=== PATIENT | male | born 1930 | race Caucasian/White ===

== ENCOUNTER → 2017-01-30 | Outpatient (CLI) | payer MEDICARE ==
[2014-09-24 04:50] VITALS: BP 148/69
[~2017-01-30] MED LIST: AMLO10TA2 PO; ASPI325T4 PO; CRESTOR10 MG PO; DOXY100C2 PO; FLUT16SP2 NS; IOHEXOL 240 MG/ML 50ML VIAL. ONE; LISI40TA PO; OSEL30CA PO
--- NOTE | 2017-01-30 10:02 | RAD ---
CT chest abdomen pelvis without IV contrast History: Unexplained 30 pound weight loss. Comparison: None. Technique: After administration of oral contrast only, helical CT of the chest, abdomen, and pelvis was performed from the lung apices through the ischial tuberosities. One or more of the following individualized dose reduction techniques were utilized for the study: Automated exposure control Adjustment of mA and/or kV according to patient's size Use of iterative reconstruction technique. Findings: Evaluation of solid organs is limited by lack of intravenous contrast. Thyroid is symmetric. Trachea and mainstem bronchi appear patent. No mediastinal lymphadenopathy is identified. Aortic atherosclerosis is seen. Coronary artery calcifications are present. Heart and pericardium are unremarkable. Mild centrilobular emphysematous changes are seen within the lungs, primarily in the upper lobes. Multiple small scattered bilateral nonspecific soft tissue pulmonary nodules are seen. A few examples include right lower lobe pulmonary nodule measuring 6 mm (axial image 63). Peripheral left upper lobe demonstrates 4 mm soft tissue pulmonary nodule (axial image 16). 5 mm pulmonary nodule is seen in the right upper lobe (axial image 42). Additional right upper lobe pulmonary nodule measuring 5 mm (axial image 43) is seen. Several additional small pulmonary nodules are scattered throughout both lungs. Liver, spleen, pancreas, and bilateral adrenal glands are unremarkable. Gallbladder is is unremarkable. No bowel obstruction or inflammation is seen. Colonic diverticulosis is noted, but no diverticulitis is appreciated. Urinary bladder is unremarkable. 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 Right renal artery demonstrates presence of stent. There is a 2 mm calcification involving the left kidney, which could be atherosclerosis involving the distal artery versus nonobstructive nephrolith. Both kidneys demonstrate several exophytic small lesion which are intermediate to high in attenuation. The inferior pole of the left kidney demonstrates 1.2 cm intermediate density lesion. The interpolar region of left kidney demonstrates 1.2 cm intermediate density lesion. Superior pole of right kidney demonstrates 0.9 cm intermediate density lesion. Interpolar region of the right kidney demonstrates 2 high density lesions measuring up to 0.9 cm. No abdominal or pelvic lymphadenopathy is seen. Degenerative changes are present in spine. No suspicious osseous lesions are seen. Impression: 1. Limited examination by lack of intravenous contrast. 2. Mild emphysematous changes. 3. Multiple scattered, nonspecific soft tissue pulmonary nodules measure up to 6 mm. Recommend a follow-up CT without contrast in 3-6 months.
== END | disposition home or self-care (01) ==
LOC: CT 07:49
PROVIDERS: ATTEND Family Medicine
DX: J43.2 Centrilobular emphysema (principal); R91.8 Other nonspecific abnormal finding of lung field; R91.1 Solitary pulmonary nodule; R63.4 Abnormal weight loss
CPT/HCPCS: 71250; 74176; Q9966

== ENCOUNTER → 2017-04-30 | Outpatient (CLI) | payer MEDICARE ==
[2014-09-24 04:50] VITALS: BP 148/69
[~2017-04-30] MED LIST changes: -ASPI325T4 PO; +ASPI325T8 PO; -IOHEXOL 240 MG/ML 50ML VIAL. ONE
--- NOTE | 2017-04-30 11:15 | RAD ---
CT chest without contrast 04/30/2017 Clinical indication: Lung nodule follow-up. Comparison: CT chest 01/30/2017 Technique: CT helical acquisition of the chest was obtained without contrast. Coronal and sagittal reformations were obtained. PQRS Compliance Statement: One or more of the following individualized dose reduction techniques were utilized for this examination: 1. Automated exposure control 2. Adjustment of the mA and/or kV according to patient size 3. Use of iterative reconstruction technique Findings: Chest: This is normal without significant pericardial effusion. There is stable mild dilatation of the ascending thoracic aorta measuring 4.0 cm with moderate calcified atheromatous disease. There are three-vessel coronary artery calcifications. No axillary, mediastinal or obvious hilar lymphadenopathy, though evaluation is limited in the absence of intravenous contrast. There are small mediastinal and left hilar calcified granulomas. The central airways are patent. There is mild bilateral central bronchiectasis. Mild upper lobe predominant centrilobular emphysema. There are numerous bilateral noncalcified pulmonary nodules stable in comparison to January 30, 2017 examination. [employer] right lung nodule in the posterior right lower lobe measures 7 mm C series 2/image 66), previously 7 mm. [employer] left lung nodule in the left upper lobe measures 6 mm (series 2/41 image), previously 6 mm. No new or enlarging noncalcified pulmonary nodule. No pleural effusion or pneumothorax. There is multilevel thoracic spondylosis without destructive osseous lesions. Limited images of the upper abdomen: 3 mm calculus in the superior pole the left kidney. Small left renal cyst. Impression: 1. No significant change in numerous noncalcified bilateral pulmonary nodules. Follow-up noncontrast CT chest in 6 months is recommended to assess for stability. 2. Mild emphysema.
== END | disposition home or self-care (01) ==
LOC: CT 10:06
PROVIDERS: ATTEND Family Medicine
DX: J43.2 Centrilobular emphysema (principal); M47.894 Other spondylosis, thoracic region; N28.1 Cyst of kidney, acquired; J98.4 Other disorders of lung; R91.1 Solitary pulmonary nodule
CPT/HCPCS: 71250

== ENCOUNTER → 2017-07-09 | Outpatient (CLI) | payer MEDICARE ==
[2014-09-24 04:50] VITALS: BP 148/69
[~2017-07-09] MED LIST changes: +IOHEXOL 300 MG/ML 75 ML VIAL. IV ONE
[2017-07-09 10:14] LABS: CREATININE 1.5 mg/dL (0.7-1.3); GFR 44.5
--- NOTE | 2017-07-09 14:04 | RAD ---
CTA of the abdomen and pelvis with and without contrast, 07/09/2017: History: Follow-up aortic aneurysm repair Multidetector CT imaging was performed prior to and following an IV bolus injection of iodinated contrast material. Multiplanar reconstructions were produced. 3-D MIP reconstructions of the major arteries were also produced. There is moderate calcific plaquing of the abdominal aorta and its branches. The celiac and superior mesenteric arterial origins are widely patent. There is a single left renal artery. Its origin is slightly dilated. Just distal to this point there is approximate 60% diameter narrowing of the proximal left renal artery. There is also approximately 60-70% diameter narrowing at the origin of the right main renal artery. Just distal to this stenosis there is a patent right renal artery stent. There appears to be only mild in-stent stenosis. There is a second smaller patent right renal artery supplying the lower pole of the right kidney. A patent inferior mesenteric artery is not identified. There is a surgical Y graft extending from the distal abdominal aorta inferiorly attaching into the external iliac arteries bilaterally. The graft is widely patent. The grand traverse distal abdominal aorta and common iliac arteries have been resected. There is no evidence of recurrent abdominal aortic aneurysm. There is moderate atherosclerotic plaquing involving the grand traverse external iliac, internal iliac and common femoral arteries bilaterally. No high-grade external iliac or common femoral arterial stenosis is evident. There is mild arterial dilatation at the bifurcations of the right external and iliac arteries bilaterally, measuring approximately 15 mm in width on both sides. Incidental CT findings include the presence of several small bilateral renal cysts. There is moderate nonspecific prostatic enlargement. There is moderate sigmoid diverticulosis. There are moderate multilevel degenerative changes in the spine. A 5-6 mm right lower lobe pulmonary nodules seen on image #1 of series #3 is unchanged since 04/30/2017. IMPRESSION: 1. Patent aortobiiliac bypass graft. 2. Moderate generalized atherosclerotic plaquing. 3. Mild to moderate narrowing of the proximal renal arteries bilaterally. 4. Patent right renal artery stent. 5. Incidental CT findings as described above. PQRS Compliance Statement: One or more of the following individualized dose reduction techniques were utilized for this examination: 1. Automated exposure control 2. Adjustment of the mA and/or kV according to patient size 3. Use of iterative reconstruction technique
== END | disposition home or self-care (01) ==
LOC: CT 09:19
PROVIDERS: ATTEND Internal Medicine Cardiovascular Disease
DX: N28.1 Cyst of kidney, acquired (principal); N40.0 Benign prostatic hyperplasia without lower urinary tract symptoms; K57.30 Diverticulosis of large intestine without perforation or abscess without bleeding; I70.0 Atherosclerosis of aorta; R91.8 Other nonspecific abnormal finding of lung field; M47.899 Other spondylosis, site unspecified; I25.10 Atherosclerotic heart disease of native coronary artery without angina pectoris; I10 Essential (primary) hypertension; Z86.79 Personal history of other diseases of the circulatory system; Z98.890 Other specified postprocedural states; Z79.01 Long term (current) use of anticoagulants
CPT/HCPCS: 36415; 74178; 82565

== ENCOUNTER → 2017-11-17 | Outpatient (CLI) | payer MEDICARE ==
[2014-09-24 04:50] VITALS: BP 148/69
[~2017-11-17] MED LIST changes: -IOHEXOL 300 MG/ML 75 ML VIAL. IV ONE
--- NOTE | 2017-11-17 12:03 | RAD ---
CT of the chest without contrast 11/17/2017 Indication: Multiple bilateral pulmonary nodules. Patient is a 87-year-old male with a significant long-term smoking history. Comparison study: CT of the chest April 30, 2017. Technique:: Multidetector CT imaging of the chest was performed without the administration of IV contrast. Findings: Heart size is normal. Extensive atherosclerotic vascular calcification is noted. Coronary calcification is noted. No significant pericardial effusion is seen. No evidence of pathologically enlarged mediastinal adenopathy is identified. Visualized central airways are grossly patent. Bilateral emphysematous changes are again noted. No acute appearing consolidation or infiltrate is seen. No pleural effusion is seen. Left apical scarring similar to comparison study. Multiple bilateral noncalcified pulmonary nodules are noted. The largest nodule in the left upper lobe has increased in size measuring up to 8 mm x 11 mm on sagittal imaging. On prior study this measured 9 mm x 5 mm and measured at a comparable fashion. Finding raises concern for malignancy. 6 mm subpleural nodule in the right lower lobe is stable in size. Limited visualization of the upper abdomen demonstrates no acute change from prior studies. Left nephrolithiasis is noted. No acute osseous abnormalities are identified. Impression: 1. Interval increase in size of the largest nodule in the right upper lobe. This is best appreciated on sagittal imaging where nodule now measures 8 x 11 mm previously measuring 9 x 5 mm. Finding raises concern for malignancy. 2. Remaining multifocal noncalcified pulmonary nodules appear stable. PQRS Compliance Statement: One or more of the following individualized dose reduction techniques were utilized for this examination: 1. Automated exposure control 2. Adjustment of the mA and/or kV according to patient size 3. Use of iterative reconstruction technique
== END | disposition home or self-care (01) ==
LOC: CT 11:01
PROVIDERS: ATTEND Family Medicine
DX: J43.9 Emphysema, unspecified (principal); I25.10 Atherosclerotic heart disease of native coronary artery without angina pectoris; N20.0 Calculus of kidney; R91.8 Other nonspecific abnormal finding of lung field; Z87.891 Personal history of nicotine dependence
CPT/HCPCS: 71250

== ENCOUNTER → 2021-05-16 | Outpatient (CLI) | payer MEDICARE ==
[2014-09-24 04:50] VITALS: BP 148/69
[~2021-05-16] MED LIST changes: +AMLO-187 PO; -AMLO10TA2 PO; -DOXY100C2 PO; +DOXY100C3 PO; -LISI40TA PO; +LISI40TA6 PO
--- NOTE | 2021-05-16 09:42 | RAD ---
EXAM: ULTRASOUND ABDOMINAL AORTA. HISTORY: Abdominal aortic aneurysm screening. Smoking history. COMPARISON: 07/09/2017. FINDINGS: Sonographic evaluation of the abdominal aorta and common iliac arteries was performed. Proximally, the abdominal aorta measures 2.8 x 2.6 cm. In its midportion, 2.5 x 2.1 cm. Distally, 1.9 x 1.7 cm. Graft repair of the common iliac arteries is suspected, better seen on prior CT. The right common mathieu ac artery measures 1.1 x 1.0 cm. The left measures 1.0 x 1.0 cm. There is no evidence of stenosis on Doppler. IMPRESSION: 1. No abdominal aortic aneurysm. Electronically signed by: Guanakito Espinosa MD (05/16/2021 9:40 AM) [id number]
--- NOTE | 2021-05-16 09:58 | RAD ---
PQRS Compliance Statement: One or more of the following individualized dose reduction techniques were utilized for this examinat ion: 1. Automated exposure control 2. Adjustment of the mA and/or kV according to patient size 3. Use of iterative reconstruction technique CT LOW DOSE LUNG SCREEN 05/16/2021 9:14 AM Indication: Smoking history. Lung cancer screening. COMPARISON: CT chest, abdomen and pelvis 01/30/2017. TECHNIQUE: Multiple axial CT images of the chest were obtained without intravenous contrast utilizing low-dose technique. Coronal and sagittal reformats are provided. FINDINGS: 6 mm solid noncalcified pleura nodule identified in the right lower lobe (series 5, image 194). There is a spiculated solid noncalcified pulmonary nodule identified within the right upper lobe anteriorl y abutting the mediastinal pleura measuring 2.7 x 2.2 x 2.0 cm. This finding previously measured 5 mm on 01/30/2017. This finding is suspicious for primary lung malignancy. Additional solid noncalcified pulmonary nodules identified within the left upper lobe measuring 3-5 mm (series 5, image 87). Modera te centrilobular pulmonary emphysema. No pleural effusions, pulmonary vascular congestion or pneumoth orax. Thyroid gland is normal in appearance. Ascending thoracic aorta is ectatic measuring 4.0 cm. Li mited evaluation of hilar lymphadenopathy without intravenous contrast. Three-vessel coronary vascula r calculations are present. Limited evaluation of the upper abdomen. No definite adrenal mass on this examination. No suspicious osseous abnormality is identified. IMPRESSION: 1. Spiculated anterior right upper lobe solid noncalcified pulmonary mass measures 2.7 x 2.2 x 2.0 cm . Lung RADS category 4B, very suspicious. Findings for which additional diagnostic testing and/or tis pérez sampling is recommended. Recommend PET/CT or tissue sampling. If there is clinical concern for po tential infectious or inflammatory underlying condition, one month follow-up low-dose chest CT could be of benefit. 2. Additional solid noncalcified pulmonary nodules measure up to 6 mm in the right upper lobe. 3. Moderate centrilobular pulmonary emphysema. FOR INTERNAL CODING PURPOSES Critical result: Findings discussed with Dr. Hercules at 05/16/2021 9:55 AM. RESULT CODE: (C) Electronically signed by: Ira Emmanuel MD (05/16/2021 9:55 AM) [id number]
== END ==
LOC: US 08:43
PROVIDERS: ATTEND Specialist
DX: Z12.2 Encounter for screening for malignant neoplasm of respiratory organs (principal); R91.8 Other nonspecific abnormal finding of lung field; J43.8 Other emphysema; Z87.891 Personal history of nicotine dependence
CPT/HCPCS: 71271; 76770